=== PATIENT | female | born 1980 ===

== ENCOUNTER 2016-11-14 21:22 | Emergency (ER) | payer SELFPAY ==
[2016-11-14 21:35] VITALS: BP 114/76; PULSE 87; RESP 16; TEMP 98.2; O2SAT 100
--- NOTE | 2016-11-14 22:06 | ED PDOC ---
HPI: Dental Pain/Injury Time Seen by Provider: 11/14/16 21:54 Chief Complaint (Nursing): Dental Pain Chief Complaint (Provider): tooth pain History Per: Patient, Family (son at bedside is translating for mother) Additional Complaint(s): 36 year old female with no past medical history presents with right upper mandible dental pain for 2 days. Patient has been taking motrin but this has not helped the pain. No fever or chills, patient is tolerating liquids and solids. Past Medical History Reviewed: Historical Data, Nursing Documentation, Vital Signs Vital Signs: Last Vital Signs Temp 98.2 F 11/14/16 21:33 Pulse 87 11/14/16 21:33 Resp 16 11/14/16 21:33 BP 114/76 11/14/16 21:33 Pulse Ox 100 11/14/16 21:33 - Medical History PMH: No Chronic Diseases - Surgical History Surgical History: (x 3) - Family History Family History: States: No Known Family Hx - Living Arrangements Living Arrangements: With Family - Social History Current smoker - smoking cessation education provided: No Alcohol: None Drugs: Denies - Home Medications Home Medications: Ambulatory Orders Medication Instructions Recorded Acetaminophen [Tylenol 325mg tab] 650 mg PO Q4 PRN #1 bottle 11/14/16 Amoxicillin 875 mg PO BID #14 tab 11/14/16 Ibuprofen [Motrin Tab] 800 mg PO Q8 PRN #20 tab 11/14/16 - Allergies Allergies/Adverse Reactions: Allergies Allergy/AdvReac Type Severity Reaction Status Date / Time No Known Allergies Allergy Verified 11/14/16 21:35 Review of Systems ROS Statement: Except As Marked, All Systems Reviewed And Found Negative Constitutional: Negative for: Fever ENT: Positive for: Other (tooth pain) Respiratory: Negative for: Cough Gastrointestinal: Negative for: Vomiting Physical Exam - Reviewed Nursing Documentation Reviewed: Yes Vital Signs Reviewed: Yes - Physical Exam Appears: Positive for: Well, Non-toxic, No Acute Distress Skin: Negative for: Rash Eye Exam: Positive for: Normal appearance ENT: Positive for: Other (Tenderness to tooth #1 of right upper mandible with mild surrounding gingival swelling, no abscess, overall dentition intact, airway patent, uvula midline) Neck: Positive for: Normal Cardiovascular/Chest: Positive for: Regular Rate, Rhythm Respiratory: Positive for: Normal Breath Sounds Neurologic/Psych: Positive for: Alert, Oriented - Laboratory Results Urine POC: Negative - ECG O2 Sat by Pulse Oximetry: 100 Pulse Ox Interpretation: Normal Medical Decision Making Medical Decision Makin36 year old with toothache Plan: PO motrin and tylenol Rx amoxicillin, motrin and tylenol. Advised follow up with dentist BABATUNDE. Disposition - Clinical Impression Clinical Impression: Pain, dental - Patient ED Disposition Is Patient to be Admitted: No Counseled Patient/Family Regarding: Diagnosis, Need For Followup, Rx Given - Disposition Referrals: [facility] [Outside] Disposition: Routine/Home Disposition Time: 22:32 Condition: STABLE Additional Instructions: Take rx meds as directed. Follow up as soon as possible with dentist. Prescriptions: Acetaminophen [Tylenol 325mg tab] 650 mg PO Q4 PRN #1 bottle PRN Reason: Pain, Moderate (4-7) Amoxicillin 875 mg PO BID #14 tab Ibuprofen [Motrin Tab] 800 mg PO Q8 PRN #20 tab PRN Reason: Pain, Moderate (4-7) Instructions: Toothache (ED) Forms: [employer] (Chinese) Print Language: FRISIAN
== END 2016-11-14 22:40 | disposition home or self-care (01) ==
LOC: H.ER 21:22
DX: K08.89 Other specified disorders of teeth and supporting structures (principal)

== ENCOUNTER 2018-02-13 13:47 | Emergency (ER) | payer SELFPAY ==
[2018-02-13 15:15] VITALS: BMI 28.5
[2018-02-13 16:25] LABS: SQUAMOUS EPITHIAL 2 /hpf (0-5); URINE BACTERIA FEW (<OCC); URINE BILIRUBIN NEGATIVE (NEGATIVE); URINE BLOOD NEGATIVE (NEGATIVE); URINE CLARITY CLEAR (Clear); URINE COLOR STRAW (YELLOW); URINE GLUCOSE (UA) NEG (Normal); URINE LEUKOCYTE ESTERASE NEG Leu/uL (Negative); URINE PROTEIN NEGATIVE (NEGATIVE); URINE UROBILINOGEN 0.2-1.0 mg/dL (0.2-1.0)
--- NOTE | 2018-02-13 17:02 | US ---
Date of service: 02/13/2018 PROCEDURE: Biophysical profile HISTORY: Vaginal bleeding COMPARISON: None TECHNIQUE: Standard protocol for this study/examination. FINDINGS: FINDINGS: Biophysical profile score 8/8 Based on the followin. breathing movements: 2/2 2. Gross body movement: 2/2 3. tone: 2/2 4. Qualitative amniotic fluid index: 2/2 Closed cervix 3.63 cm. Quantitative amniotic fluid index 12.3 cm. Cardiac rate 172 beats per minute. Cephalic presentation. Posterior placenta. IMPRESSION: Biophysical profile score 8/8.
[2018-02-13 21:54] VITALS: BP 107/61; PULSE 86; RESP 18; TEMP 98; O2SAT 98
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
== END 2018-02-13 17:15 | disposition home or self-care (01) ==
LOC: H.EROB2 13:47
DX: O46.93 Antepartum hemorrhage, unspecified, third trimester (principal); Z3A.31 31 weeks gestation of pregnancy

== ENCOUNTER 2018-04-08 08:02 | Inpatient (IN) | payer MEDICAID ==
[2018-04-08] MEDS: Lactated Ringer's 1,000 ML IV ONE ×2 (08:10→09:10)
[2018-04-08 08:20] VITALS: BMI 30.2
[2018-04-08] MEDS ORDERED: ceFAZolin 2 GM in Sodium Chloride 0.9% 100 ML IVPB ONE (08:20)
[2018-04-08] MEDS ORDERED: ceFAZolin IV 2 gm in Dextrose 2 GM/50 ML BAG IVPB ONE (08:45)
[2018-04-08] MEDS ORDERED: Oxytocin 30 UNIT 30 UNITS/500 ML BAG IV ONE (08:56)
[2018-04-08 08:59] LABS: BASO % 0.5 % (0.0-2.0); EOS # 0.1 K/uL (0.0-0.7); EOS % 1.2 % (0.0-4.0); HEMOGLOBIN 11.3 g/dL (12.0-16.0); LYMPH # 2.7 K/uL (1.0-4.3); LYMPH % 29.4 % (20.0-40.0); MEAN CELL VOLUME 88.5 fl (81.0-99.0); MEAN CORPUSCULAR HEMOGLOBIN 28.7 pg (27.0-31.0); MEAN CORPUSCULAR HGB CONC 32.4 g/dL (33.0-37.0); MEAN PLATELET VOLUME 10.5 fl (7.2-11.7); MONO # 0.6 K/uL (0.0-0.8); MONO % 6.3 % (0.0-10.0); NEUT # 5.7 K/uL (1.8-7.0); NEUT % 62.6 % (50.0-75.0); NRBC % 0.1 % (0.0-0.0); RBC 3.94 Mil/uL (3.80-5.20); RED CELL DISTRIBUTION WIDTH 15.5 % (11.5-14.5)
[2018-04-08] MEDS ORDERED: OXYTOCIN/0.9 % NS 20 UNIT/1,000 ML BAG IV SCH ×2 (09:00→17:45)
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
[2018-04-08] MEDS ORDERED: Morphine 1 mg/ml preservative-free Inj(Duramorph) ONE (12:29)
[2018-04-08] MEDS ORDERED: Phenylephrine 10 mg/ml Inj ONE (12:29)
[2018-04-08] MEDS ORDERED: ePHEDrine 50 mg/ml Inj ONE ×2 (12:40→13:10)
[2018-04-08] MEDS ORDERED: HYDROmorphone 0.5 mg/0.5 ml ISec IVP PRN ×2 (13:50→17:45)
[2018-04-08] MEDS ORDERED: Oxycodone/Acetaminophen 5/325 mg Tab PO PRN ×4 (14:07→17:45)
[2018-04-08] MEDS ORDERED: DiphenhydrAMINE 50 mg/ml Inj IVP PRN (14:48)
[2018-04-08] MEDS ORDERED: Lactated Ringer's 1,000 ML IV SCH (15:00)
[2018-04-08] MEDS: Lactated Ringer's 1,000 ML IV SCH ×2 (18:56→22:32)
[2018-04-09 06:41] LABS: HEMOGLOBIN 10.1 g/dL (12.0-16.0); MEAN CELL VOLUME 91.6 fl (81.0-99.0); MEAN CORPUSCULAR HEMOGLOBIN 29.1 pg (27.0-31.0); MEAN CORPUSCULAR HGB CONC 31.8 g/dL (33.0-37.0); RBC 3.46 Mil/uL (3.80-5.20); RED CELL DISTRIBUTION WIDTH 15.7 % (11.5-14.5); WHITE BLOOD COUNT 9.2 K/uL (4.8-10.8)
[2018-04-09] MEDS ORDERED: Multivitamin With Minerals Tab PO SCH (09:00)
[2018-04-09] MEDS: Multivitamin With Minerals Tab PO SCH (09:16)
--- NOTE | 2018-04-09 09:19 | OBPPN ---
Datetime: 04/09/2018 06:15 PP Pain Prov: Within normal limits PP Nausea Prov: Denies PP Flatus Prov: Yes PP BM Prov: No PP Breasts Prov: Not Done PP Heart Prov: Normal PP Lungs Prov: Normal PP Abdomen/Uterus Prov: Normal PP Lochia Prov: Normal PP Vulva/Perineum Prov: Not Done PP CVA Tenderness Prov: Not Done PP Extremities Prov: Normal PP C/S Incision Prov: Normal PP Progress Prov: Normal PP Impression Prov: Normal progression PP Plan Prov: Continue present management PP Progress Note Prov: POD 1 S: 38 y/o female s/p on 04/08/2018. Patient seen and examined at bedside; no pernell lints this AM. No overnight events. Lochia like menses. Denies having BM, endorses passing gas. Hernán ating liquid diet. Patient denies having difficulties . O: Vitally stable GEN: Patient is comfortable. In no acute distress. Cardio: S1S2, no murmurs, gallops or rubs. Lungs: clear air entry sounds b/l, no wheezing Abdomen: BS+, tenderness to palpation. incision intact, no erythema/swelling/warmth. Bethany jordan is firm and at the level of the umbilicus. EXT: No edema, calves non-tender to palpation Assessment/Plan: 38 y/o female s/p repeat at 39.3 wks on 04/08/2018. Pt remains afebrile, toleratin g pain with medication, doing well on POD#1 Advance diet as tolerated D/C sanchez this AM SCDs for DVT prophylaxis, encouraged ambulating Percocet 5/325mg, and Motrin 600mg prn for pain. Senokot for constipation Continue to ambulate Anticipated discharge on 04/11/17 Sheyla Prieto, pgy1 The patient was seen with the resident I agree with the note Vital Signs Provider PP: Reviewed; Within Normal Limits
[2018-04-10] MEDS: Multivitamin With Minerals Tab PO SCH (08:43)
--- NOTE | 2018-04-10 09:45 | OBPPN ---
Datetime: 04/10/2018 06:15 PP Pain Prov: Within normal limits PP Nausea Prov: Denies PP Flatus Prov: Yes PP BM Prov: Yes PP Breasts Prov: Not Done PP Heart Prov: Normal PP Lungs Prov: Normal PP Abdomen/Uterus Prov: Normal PP Lochia Prov: Normal PP Vulva/Perineum Prov: Not Done PP CVA Tenderness Prov: Not Done PP Extremities Prov: Normal PP C/S Incision Prov: Normal PP Progress Prov: Normal PP Impression Prov: Normal progression PP Plan Prov: Continue present management PP Progress Note Prov: POD 2 S: 38 y/o female s/p on 04/08/2018. Patient seen and examined at bedside; no pernell lints this AM. No overnight events. Lochia like menses. Endorses having BM and passing gas. Toleratin g regular diet. Patient denies having difficulties . O: Vitally stable GEN: Patient is comfortable. In no acute distress. Cardio: S1S2, no murmurs, gallops or rubs. Lungs: clear air entry sounds b/l, no wheezing Abdomen: BS+, tenderness to palpation. incision intact, no erythema/swelling/warmth. [place] jordan is firm and at the level of the umbilicus. EXT: No edema, calves non-tender to palpation Assessment/Plan: 38 y/o female s/p repeat at 39.3 wks on 04/08/2018. Pt remains afebrile, toleratin g pain with medication, doing well on POD#2 Cont. present mangement SCDs for DVT prophylaxis, encouraged ambulating Percocet 5/325mg, and Motrin 600mg prn for pain. Senokot for constipation Continue to ambulate Anticipated discharge on 04/11/17 Sheyla Prieto, pgy1 Patient seen and examined by me this am. Agree with above resident note. --Dr. Johnson Vital Signs Provider PP: Reviewed; Within Normal Limits
--- NOTE | 2018-04-10 14:31 | OBDS ---
DELIVERY PERSONNEL Delivery Doctor: Karyna Johnson MD Scrub Nurse: Lani Marti OBT Refund Specialist: Mindy Butcher RN Anesthesiologist: Roberto Carlos Weston MD Resident: MD Suresh Shafer MD MATERNAL INFORMATION Delivery Anesthesia: Spinal Medications in Delivery: pitocin Estimated Blood Loss (ml): 800 Placenta Cultured: No Maternal Complications: None RN Comments: Atraumatic repeat of a viable babyboy with lusty cry. recieved by Dr. Ling 7/9 's assigned for color. Infant transitioned well and skin to skin initiated. Patie nt recieved a bilateral BTL and a left Oopherectomy Placenta sent to pathology. taken to nurse ry for additional observation per Dr Banegas. Skin to skin less than 60 minutes. Patient and recoverying well. Provider Comments: See operative report LABOR SUMMARY EDC: 04/12/2018 00:00 No. Babies in Womb: 1 Attempted: No Labor Anesthesia: spinal LABOR INFORMATION Reason for Induction: Not Applicable Oxytocin: N/A Group B Beta Strep: Negative Antibiotics # of Doses: 1 Antibiotics Time of Last Dose: 12:42 Steroids Given: None Reason Steroids Not Administered: Not Applicable Other Reason Not Administered: Not required MEMBRANES Membranes Rupture Method: Artificial Rupture of Membranes: 04/08/2018 13:17 Length of Rupture (hrs): 0.02 Amniotic Fluid Color: Clear Amniotic Fluid Amount: Small Amniotic Fluid Odor: Normal STAGES OF LABOR Stage 3 hrs: 0 Stage 3 min: 1 CSECTION DELIVERY Primary Indication: Repeat Elective CSection Urgency: Elective CSection Incidence: Repeat CSection Incision: Lower Uterine Transverse Sterilization Procedure: Zahida BABY A INFORMATION Delivery Date/Time: 04/08/2018 13:18 Method of Delivery: Born in Route : No : N/A Forceps: N/A Vacuum Extraction: N/A Shoulder Dystocia : No SHOULDER DYSTOCIA BABY A Delivery Date/Time: 04/08/2018 13:18 PRESENTATION/POSITION BABY A Presentation: Cephalic Cephalic Presentation: Vertex Breech Presentation: N/A PLACENTA INFORMATION BABY A Placenta Delivery Time : 04/08/2018 13:19 Placenta Method of Delivery: Manual Removal Placenta Status: Delivered SCORES BABY A Heart Rate 1 min: >100 bpm Resp Effort 1 min: Good Cry Reflex Irritability 1 min: Cough or Sneeze or Pulls Away Muscle Tone 1 min: Active Motion Color 1 min: Blue/Pale Resuscitation Effort 1 min: N/A SCORE 1 MIN: 8 Heart Rate 5 min: >100 bpm Resp Effort 5 min: Good Cry Reflex Irritability 5 min: Cough or Sneeze or Pulls Away Muscle Tone 5 min: Active Motion Color 5 min: Body [place], Extremities Blue Resuscitation Effort 5 min: N/A SCORE 5 MIN: 9 INFORMATION BABY A Gestational Age at Delivery: 39.0 Gestational Status: Term Infant Outcome : Liveborn Infant Condition : Stable Infant Sex: Male IDENTIFICATION/MEDS BABY A ID Band Number: [id number] ID Band Location: Left Leg; Left Arm Vitamin K Given : Aquamephyton 0.5 mg IM Erythromycin Given: Given Left Eye Only WEIGHT/LENGTH BABY A Infant Birthweight (gms): 3715 Infant Weight (lb): 8 Infant Weight (oz): 3 Infant Length Inches: 19.00 Infant Length cms: 48.3 CORD INFORMATION BABY A No. Cord Vessels: 3 Nuchal Cord : N/A Cord Blood Taken: N/A Infant Suction: Mouth ASSESSMENT BABY A Infant Complications: None Physical Findings at Delivery: Within Normal Limits Infant Respirations: Appears Normal Infant Care By: Dr Banegas Transferred To: Remains with Mother
--- NOTE | 2018-04-11 08:06 | OBPPN ---
Datetime: 04/11/2018 05:51 PP Pain Prov: Within normal limits PP Nausea Prov: Denies PP Flatus Prov: Yes PP BM Prov: Yes PP Breasts Prov: Not Done PP Heart Prov: Normal PP Lungs Prov: Normal PP Abdomen/Uterus Prov: Normal PP Lochia Prov: Normal PP Vulva/Perineum Prov: Not Done PP CVA Tenderness Prov: Not Done PP Extremities Prov: Normal PP C/S Incision Prov: Normal PP Progress Prov: Normal PP Impression Prov: Normal progression PP Plan Prov: Discharge PP Progress Note Prov: POD 3 S: 38 y/o female s/p on 04/08/2018. Patient seen and examined at bedside. Denies n/v/chest pain/sob. Endorses lochia like menses. Endo rses tolerating PO diet, passing gas and stool. No complaints at this time. O: Vitally stable GEN: Patient is comfortable. In no acute distress. Cardio: S1S2, no murmurs, gallops or rubs. Lungs: clear air entry sounds b/l, no wheezing Abdomen: BS+, tenderness to palpation. incision intact, no erythema/swelling/warmth. [place] jordan is firm and at the level of the umbilicus. EXT: No edema, calves non-tender to palpation Assessment/Plan: 38 y/o female s/pod#3 of repeat at 39.3 wks on 04/08/2018 Encouraged ambulating Cont. Percocet 5/325mg, and Motrin 600mg prn for pain. Anticipated discharge today Sheyla Prieto, josé [email or web address] Attending addendum: I saw and examined the patient myself this morning. I reveiwed the resident note above and agree w ith note and management. DC home today. Gi Perez MD Vital Signs Provider PP: Reviewed; Within Normal Limits
--- NOTE | 2018-04-11 08:06 | OBDCSUM ---
Datetime: 04/11/2018 06:28 Discharged to, Provider: Home Follow up at, Provider: [facility] Disch Instr Activity: Normal activity Disch Instr Diet: Regular Discharge Instructions, Provider: Specific instructions as noted Discharge Diagnosis, Provider: Term Delivered Discharge Time: 04/11/2018 10:00 Follow up in weeks, Provider: 1 week Disch Referrals: None Contraception discussed, Prov: Yes Disch Activity Restrictions: No exercising; No lifting; No sexual activity; Nothing in vagina - Inte rcourse, tampons, douche Discharge Comment, Provider: 38 yo s/p on 04/08/18 @ 13:18. POD3 EGA: 39.3 Diagnosis: Repeat C section Summary of : No complications DOD: 04/08/2018 @ 13:18 Sex:male Weight:3715 gms : 8/9 Feeding: breastdeeding Post- D/C Summary: No OB complications. No complications during post- period. Lochia l [facility] menses in volume. Pt able to pass gas, ambulate and pass urine. Tolerate regular diet, no ALONSO, CP, SOB, N/V, fever or other acute complaint at this time. Fundus firm below umbilicus level. Pt is hemo dynamically stable. H/H : 10.1/31.7 (admission 11.3/34.6)8 DISCHARGE DATA D/C DATE: 04/11/2018 DISCHARGE INSTRUCTIONS: -Encouraged -PNV 1 tab po q/day -Ibuprofen 600 mg 1 tab po q4-6h PRN mild pain #30 -Percocet 5/325mg 1 tab po Q 6h PRN severe pain #20 -Colace 100mg 1 tab po BID PRN constipation #10 -Ambulate with caution, nothing per vagina/sex for 4 weeks, no heavy lifting, avoid stairs, if exc essive bleeding or fever without relief from Tylenol go to ED F/U at [facility] w/ Dr. Shafer for wound check and appt in 1 week and post- appt in 4-6 w eeks. Appointment scheduled. Case reviewed and discussed with Attending Sheyla castañeda. Attending addendum: I saw and examined the patient myself this morning. I reveiwed the resident note above and agree w ith note and management. DC home today. Gi Perez MD Contraception after Delivery: Tubal Ligation
[2018-04-11] MEDS: Multivitamin With Minerals Tab PO SCH (08:22)
--- NOTE | 2018-04-11 10:37 | OP ---
PROCEDURE DATE: 04/08/2018 PREOPERATIVE DIAGNOSES: Term with previous section x3, history of abdominoplasty. POSTOPERATIVE DIAGNOSES: Term with previous section x3, history of abdominoplasty with left ovarian mass. PROCEDURES: Repeat low-transverse section, bilateral tubal ligation, and left oophorectomy. SURGEON: Eliceo Johnson MD MARBLE CEILING INSTALLER: Aldair Magana MD INTRAVENOUS FLUIDS: 1800 mL lactated Ringer's. ESTIMATED BLOOD LOSS: 800 mL. URINE OUTPUT: 350 mL, clear at the end of procedure. ANESTHESIA: Combined spinal epidural. ANESTHESIOLOGIST: Berenice Weston MD PATHOLOGY: Segment of right and lest fallopian tube, placenta and left ovary with cyst. FINDINGS: A live male with Apgars of 7 and 9, weight 3715 g, delivered at 1318 in vertex presentation, amniotic fluid clear, and a large approximately 4 cm left ovarian mass was noted. DESCRIPTION OF PROCEDURE: The patient was taken to the operating room and given combined spinal anesthesia without difficulty. She was then prepped and draped in the normal sterile fashion in the dorsal supine position with a leftward tilt. A Pfannenstiel skin incision was then made to the previous scar with the scalpel and carried to the underlying fascia with the Bovie. The fascia was incised then in the midline. The incision was extended laterally with the Bovie. The inferior aspect of the fascial incision was then grasped with Michael clamps, elevated, and the underlying rectus muscles were dissected off with the Bovie, then bluntly. Attention was then turned to the superior aspect, which in a similar fashion was dissected off with the Bovie, then bluntly. The rectus muscles were then meticulously in the midline using the scalpel and the peritoneum was then entered. This incision was then extended laterally, superiorly and inferiorly with the Bovie. At this time, adhesions of the omentum were seen to the anterior abdominal wall and these were taken down with free ties and the Bovie. Good hemostasis was noted. The omentum was then packed away. The vesicouterine peritoneum was noted, elevated, and entered with Metzenbaum scissors. This was then extended laterally and a bladder flap was created digitally. The bladder blade was re-inserted and the lower uterine segment was incised in a transverse fashion with the scalpel. This incision was then extended cephalocaudally bluntly. Membranes were then ruptured and the was delivered in vertex presentation atraumatically. The nose and mouth were suctioned on the abdomen. The cord was doubly clamped and cut and the was handed off to the awaiting blindstitch machine operator. Cord blood was then taken. The placenta was extracted manually and intact. The uterus was exteriorized and cleared of all clots and debris. At this time, a large left ovarian mass was noted. The uterus was closed with 1 Vicryl in a running locked fashion and one further [id number] suture was then placed and good hemostasis was noted. The patient was then informed of the left ovarian mass and with wildland fire fighter specialist, Dr. Magana, the decision was made along with the patient. The patient was asked about removal of the presumed cystic area of the mass only or the entire left ovary as the pathology was not definitive. The patient stated that she desired for the entire mass including the ovary to be removed and sent to pathology for diagnosis and this was then performed at that time. Sam clamps were then used and placed at the base of the ovary. The Bovie was then used to excise the left ovary with the included mass and this was sent off the field to be sent to pathology. Free ties were then placed around the base to cut off the blood supply and then the area was also suture ligated with an 0 Vicryl and good hemostasis was noted throughout. Attention was then turned to the tubes, at which time a modified [place] procedure was performed using a 2-0 chromic suture. This was performed bilaterally and the cut segment of the right and left fallopian tube were handed off the field for pathology. Good hemostasis was noted. Copious irrigation was performed. The uterus was returned to the abdomen. The gutters were cleared off all clots. Inspection of the site of the left oophorectomy and the bilateral tubal ligation sites again revealed good hemostasis. The peritoneum and muscle layer were then closed with 2-0 Vicryl in a running fashion. The fascia was then closed with 0 Vicryl in a running fashion to the midline. The Bovie was used to create good hemostasis on the subcutaneous fat layer and this layer was also closed with a 3-0 plain suture with 4 interrupted stitches. The skin was closed with kelin and covered with a sterile dressing. The patient tolerated the procedure well. Sponge, lap, and needle counts were correct x4. Ancef 2 g was given preoperatively. The patient was then taken to the recovery room in stable condition. There was no injury to the bladder, bowel, ureter, or baby. Eliceo Johnson MD
[2018-04-11] MEDS ORDERED: Measles, Mumps, and Rubella 0.5 ML VIAL SC ONE (14:19)
[2018-04-12 00:31] VITALS: BP 129/73; PULSE 73; RESP 20; TEMP 97.6; O2SAT 98
== END 2018-04-11 20:10 | disposition home or self-care (01) | DRG 371 ==
LOC: H.EROB2 08:02 → H.L&D 08:13 → H.EROB2 10:00 → H.L&D 10:01 → H.OB/GYN 17:55
PROVIDERS: ADMIT Obstetrics & Gynecology; ATTEND Obstetrics & Gynecology
PROC: 10D00Z1 Extraction of Products of Conception, Low, Open Approach (ICD-10-PCS; principal; 2018-04-08)
PROC: 0UB70ZZ Excision of Bilateral Fallopian Tubes, Open Approach (ICD-10-PCS; 2018-04-08)
PROC: 4A1HXCZ Monitoring of Products of Conception, Cardiac Rate, External Approach (ICD-10-PCS; 2018-04-08)
DX: O34.211 Maternal care for low transverse scar from previous cesarean delivery (principal); N85.8 Other specified noninflammatory disorders of uterus; Z37.0 Single live birth; Z3A.39 39 weeks gestation of pregnancy; Z30.2 Encounter for sterilization